=== PATIENT | female | born 1995 | race Caucasian/White ===

== ENCOUNTER 2018-05-22 12:18 | Emergency (ER) | payer BC, OTHER ==
--- NOTE | 2018-05-22 12:21 | EDM.PDOC ---
ED HPI GENERAL MEDICAL PROBLEM - General Chief Complaint: ENT Problem Stated Complaint: SORE THROAT Time Seen by Provider: 05/22/18 12:21 Source of Information: Reports: Patient - History of Present Illness INITIAL COMMENTS - FREE TEXT/NARRATIVE: HISTORY AND PHYSICAL: History of present illness: [Patient has sore throat cough and fever over the last week sore throat is increasing in severity over the last 3 days some difficulty with solid food no difficulty with liquid, no muffled voice drooling or trismus Patient has a history of migraine she also complains of headache she has a sore neck worsened with head turned to the right right SCM does have some significant spasm that is reproducible there are no meningeal signs] She has had chronic headaches for several years no head CT on file Positive for cough and fever and headache no nausea vomiting diarrhea constipation chest pain shortness of breath dizziness or palpitation no bowel or urine symptoms Review of systems: As per history of present illness and below otherwise all systems reviewed and negative. Past medical history: As per history of present illness and as reviewed below otherwise noncontributory. Surgical history: As per history of present illness and as reviewed below otherwise noncontributory. Social history: No reported history of drug or alcohol abuse. Family history: As per history of present illness and as reviewed below otherwise noncontributory. Physical exam: HEENT: Atraumatic, normocephalic, pupils reactive, negative for conjunctival pallor or scleral icterus, mucous membranes moist, throat clear, neck supple, nontender, trachea midline. Moderate erythema of oropharynx no exudates no meningeal signs there is a reproducible pain over right SCM consistent with spasm Lungs: Clear to auscultation, breath sounds equal bilaterally, chest nontender. Heart: S1S2, regular, negative for clicks, rubs, or JVD. Abdomen: Soft, nondistended, nontender. Negative for masses or hepatosplenomegaly. Negative for costovertebral tenderness. Pelvis: Stable nontender. Genitourinary: Deferred. Rectal: Deferred. Extremities: Atraumatic, negative for cords or calf pain. Neurovascular unremarkable. Neuro: Awake, alert, oriented. Cranial nerves II through XII unremarkable. Cerebellum unremarkable. Motor and sensory unremarkable throughout. Exam nonfocal. Diagnostics: [CBC CMP UA hCG chest 2 views Blood cultures 2 ]Rapid strep Head CT no contrast Therapeutics: [1 L normal saline bolus Zofran 8 mg IV Toradol 30 mg IV ]Norflex 60 IV Imitrex 50 mg by mouth Azithromycin Z-Srini dosing Imitrex 100 mg by mouth when necessary #2 tabs one refill ibuprofen when necessary muscle spasm heat ice whichever gains most benefit Impression: Pharyngitis [ fever /cough Right SCM spasm History of migraine Definitive disposition and diagnosis as appropriate pending reevaluation and review of above. Headache Pain Score (Numeric/FACES): 5 Throat Pain Score (Numeric/FACES): 6 - Related Data Allergies Allergy/AdvReac Type Severity Reaction Status Date / Time No Known Allergies Allergy Verified 05/22/18 12:42 Home Meds: Home Meds Levonorgestrel [Mirena] 1 each IY DAILY 09/16/15 [History] Past Medical History Other Musculoskeletal History: multiple broken elbows ED ROS GENERAL - Review of Systems Review Of Systems: See Below ED EXAM, GENERAL - Physical Exam Exam: See Below Course - Vital Signs Last Recorded V/S: Last Vital Signs Temp 100.1 F 05/22/18 12:39 Pulse 106 H 05/22/18 12:39 Resp 16 05/22/18 12:39 BP 124/85 05/22/18 12:39 Pulse Ox 96 05/22/18 12:39 - Orders/Labs/Meds Orders: Active Orders 24 hr Category Date Time Status Chest 2V [CR] Stat Exams 05/22/18 12:39 Taken Head wo Cont [CT] Stat Exams 05/22/18 13:21 Taken CULTURE BLOOD [BC] Stat Lab 05/22/18 12:49 Received CULTURE BLOOD [BC] Stat Lab 05/22/18 12:56 Received CULTURE STREP A CONFIRMATION [RM] Stat Lab 05/22/18 12:19 Results HCG QUALITATIVE,URINE [URCHEM] Stat Lab 05/22/18 13:27 Ordered STREP SCRN A RAPID W CULT CONF [RM] Stat Lab 05/22/18 12:19 Ordered UA W/MICROSCOPIC [URIN] Stat Lab 05/22/18 13:27 Ordered Blood Culture x2 Reflex Set [OM.PC] Stat Oth 05/22/18 12:39 Ordered Labs: Laboratory Tests 05/22/18 05/22/18 05/22/18 Range/Units 12:49 12:49 13:27 WBC 7.45 (4.0-11.0) K/uL RBC 4.77 (4.30-5.90) M/uL Hgb 14.1 (12.0-16.0) g/dL Hct 40.9 (36.0-46.0) % MCV 85.7 (80.0-98.0) fL MCH 29.6 (27.0-32.0) pg MCHC 34.5 (31.0-37.0) g/dL RDW Std Deviation 38.9 (28.0-62.0) fl RDW Coeff of Ryann 12 (11.0-15.0) % Plt Count 175 (150-400) K/uL MPV 10.50 (7.40-12.00) fL Neut % (Auto) 80.9 H (48.0-80.0) % Lymph % (Auto) 9.3 L (16.0-40.0) % Elliott % (Auto) 9.0 (0.0-15.0) % Eos % (Auto) 0.4 (0.0-7.0) % Baso % (Auto) 0.4 (0.0-1.5) % Neut # (Auto) 6.0 H (1.4-5.7) K/uL Lymph # (Auto) 0.7 (0.6-2.4) K/uL Elliott # (Auto) 0.7 (0.0-0.8) K/uL Eos # (Auto) 0.0 (0.0-0.7) K/uL Baso # (Auto) 0.0 (0.0-0.1) K/uL Nucleated RBC % 0.0 /100WBC Nucleated RBCs # 0 K/uL Sodium 134 L (136-145) mmol/L Potassium 3.4 L (3.5-5.1) mmol/L Chloride 101 (98-107) mmol/L Carbon Dioxide 23.2 (21.0-32.0) mmol/L BUN 9 (7.0-18.0) mg/dL Creatinine 0.9 (0.6-1.0) mg/dL Est Cr Clr Drug Dosing 89.72 mL/min Estimated GFR (MDRD) > 60.0 ml/min Glucose 118 H (74-106) mg/dL Calcium 8.9 (8.5-10.1) mg/dL Total Bilirubin 0.4 (0.2-1.0) mg/dL AST 15 (15-37) IU/L ALT 18 (14-63) IU/L Alkaline Phosphatase 80 (46-116) U/L Total Protein 7.8 (6.4-8.2) g/dL Albumin 4.2 (3.4-5.0) g/dL Globulin 3.6 H (2.0-3.5) g/dL Albumin/Globulin Ratio 1.2 L (1.3-2.8) Urine Color YELLOW Urine Appearance CLEAR Urine pH 5.5 (5.0-8.0) Ur Specific Concord >= 1.030 (1.001-1.035) Urine Protein TRACE (NEGATIVE) mg/dL Urine Glucose (UA) NEGATIVE (NEGATIVE) mg/dL Urine Ketones NEGATIVE (NEGATIVE) mg/dL Urine Occult Blood NEGATIVE (NEGATIVE) Urine Nitrite NEGATIVE (NEGATIVE) Urine Bilirubin NEGATIVE (NEGATIVE) Urine Urobilinogen 0.2 (<2.0) EU/dL Ur Leukocyte Esterase NEGATIVE (NEGATIVE) Urine RBC 0-1 (0-2/HPF) Urine WBC 0-1 (0-5/HPF) Ur Epithelial Cells FEW (NONE-FEW) Urine Bacteria FEW (NEGATIVE) Urine Mucus MODERATE (NONE-MOD) Urine HCG, Qual (NEGATIVE) 05/22/18 Range/Units 13:27 WBC (4.0-11.0) K/uL RBC (4.30-5.90) M/uL Hgb (12.0-16.0) g/dL Hct (36.0-46.0) % MCV (80.0-98.0) fL MCH (27.0-32.0) pg MCHC (31.0-37.0) g/dL RDW Std Deviation (28.0-62.0) fl RDW Coeff of Ryann (11.0-15.0) % Plt Count (150-400) K/uL MPV (7.40-12.00) fL Neut % (Auto) (48.0-80.0) % Lymph % (Auto) (16.0-40.0) % Elliott % (Auto) (0.0-15.0) % Eos % (Auto) (0.0-7.0) % Baso % (Auto) (0.0-1.5) % Neut # (Auto) (1.4-5.7) K/uL Lymph # (Auto) (0.6-2.4) K/uL Elliott # (Auto) (0.0-0.8) K/uL Eos # (Auto) (0.0-0.7) K/uL Baso # (Auto) (0.0-0.1) K/uL Nucleated RBC % /100WBC Nucleated RBCs # K/uL Sodium (136-145) mmol/L Potassium (3.5-5.1) mmol/L Chloride (98-107) mmol/L Carbon Dioxide (21.0-32.0) mmol/L BUN (7.0-18.0) mg/dL Creatinine (0.6-1.0) mg/dL Est Cr Clr Drug Dosing mL/min Estimated GFR (MDRD) ml/min Glucose (74-106) mg/dL Calcium (8.5-10.1) mg/dL Total Bilirubin (0.2-1.0) mg/dL AST (15-37) IU/L ALT (14-63) IU/L Alkaline Phosphatase (46-116) U/L Total Protein (6.4-8.2) g/dL Albumin (3.4-5.0) g/dL Globulin (2.0-3.5) g/dL Albumin/Globulin Ratio (1.3-2.8) Urine Color Urine Appearance Urine pH (5.0-8.0) Ur Specific Concord (1.001-1.035) Urine Protein (NEGATIVE) mg/dL Urine Glucose (UA) (NEGATIVE) mg/dL Urine Ketones (NEGATIVE) mg/dL Urine Occult Blood (NEGATIVE) Urine Nitrite (NEGATIVE) Urine Bilirubin (NEGATIVE) Urine Urobilinogen (<2.0) EU/dL Ur Leukocyte Esterase (NEGATIVE) Urine RBC (0-2/HPF) Urine WBC (0-5/HPF) Ur Epithelial Cells (NONE-FEW) Urine Bacteria (NEGATIVE) Urine Mucus (NONE-MOD) Urine HCG, Qual NEGATIVE (NEGATIVE) Meds: Medications Discontinued Medications Generic Name Dose Route Start Last Admin Trade Name Freq PRN Reason Stop Dose Admin Sodium Chloride 1,000 mls @ 999 mls/hr 05/22/18 12:38 05/22/18 12:53 Normal Saline IV 05/22/18 13:38 999 mls/hr STAT ONE Administration Ketorolac Tromethamine 30 mg 05/22/18 12:38 05/22/18 12:58 Toradol IVPUSH 05/22/18 12:39 30 mg ONETIME ONE Administration Ondansetron HCl 8 mg 05/22/18 12:38 05/22/18 12:56 Zofran IVPUSH 05/22/18 12:39 8 mg ONETIME ONE Administration Orphenadrine Citrate 60 mg 05/22/18 14:32 05/22/18 14:40 Norflex IV 05/22/18 14:33 60 mg NOW STA Administration Sumatriptan Succinate 50 mg 05/22/18 14:57 Imitrex PO 05/22/18 14:58 ONETIME ONE Departure - Departure Time of Disposition: 15:02 Disposition: Home, Self-Care 01 Condition: Good Clinical Impression: Pharyngitis, Migraine, Muscle spasm - Discharge Information Referrals: PCP,Unknown [Primary Care Provider] - Forms: ED Department Discharge Additional Instructions: Medication as prescribed Return if symptoms persist or worsen Follow-up with primary care in 2 weeks sooner as needed [facility] - Primary [facility] [address] [place] [address] The following information is given to patients seen in the emergency department who are being discharged to home. This information is to outline your options for follow-up care. We provide all patients seen in our emergency department with a follow-up referral. The need for follow-up, as well as the timing and circumstances, are variable depending upon the specifics of your emergency department visit. If you don't have a primary care physician on staff, we will provide you with a referral. We always advise you to contact your personal physician following an emergency department visit to inform them of the circumstance of the visit and for follow-up with them and/or the need for any referrals to a consulting specialist. The emergency department will also refer you to a specialist when appropriate. This referral assures that you have the opportunity for follow-up care with a specialist. All of these measure are taken in an effort to provide you with optimal care, which includes your follow-up. Under all circumstances we always encourage you to contact your private physician who remains a resource for coordinating your care. When calling for follow-up care, please make the office aware that this follow-up is from your recent emergency room visit. If for any reason you are refused follow-up, please contact the [facility] emergency department at and asked to speak to the emergency department charge nurse. - My Orders Last 24 Hours: My Active Orders 05/22/18 12:39 Chest 2V [CR] Stat Blood Culture x2 Reflex Set [OM.PC] Stat 05/22/18 12:49 CULTURE BLOOD [BC] Stat 05/22/18 12:56 CULTURE BLOOD [BC] Stat 05/22/18 13:21 Head wo Cont [CT] Stat 05/22/18 13:27 HCG QUALITATIVE,URINE [URCHEM] Stat UA W/MICROSCOPIC [URIN] Stat - Assessment/Plan Last 24 Hours: My Active Orders 05/22/18 12:39 Chest 2V [CR] Stat Blood Culture x2 Reflex Set [OM.PC] Stat 05/22/18 12:49 CULTURE BLOOD [BC] Stat 05/22/18 12:56 CULTURE BLOOD [BC] Stat 05/22/18 13:21 Head wo Cont [CT] Stat 05/22/18 13:27 HCG QUALITATIVE,URINE [URCHEM] Stat UA W/MICROSCOPIC [URIN] Stat
[2018-05-22] MEDS ORDERED: Ondansetron 4 MG/2 ML SDV IVPUSH ONE (12:38)
[2018-05-22] MEDS ORDERED: Sodium Chloride 0.9% 1,000 ML IV ONE (12:38)
[2018-05-22] MEDS ORDERED: Ketorolac 30 MG/ML SDV IVPUSH ONE (12:38)
[2018-05-22 13:24] LABS: CHLORIDE,CL 101 mmol/L (98-107); SODIUM,NA 134 mmol/L (136-145)
[2018-05-22] MEDS ORDERED: SUMAtriptan 50 MG Tab PO ONE (14:57)
[2018-05-22 15:11] VITALS: BP 124/80
--- NOTE | 2018-05-23 14:02 | CR ---
EXAM DATE: 05/22/18 PATIENT'S AGE: 22 Patient: ANCA SALAZAR Facility: [place], [place] Site . Site : 1995 Study: XRay Chest [id number]/22/2018 2:04:51 PM Ordering Physician: Curry Guy Final Report: INDICATION: fever/sore throat INDICATION: Fever. Sore throat. TECHNIQUE: Chest 2 views. COMPARISON: None FINDINGS: Cardiovascular and mediastinum: Heart size and vasculature are normal in caliber and appearance. Mediastinum is within normal limits. Lungs and pleural spaces: Lungs are clear. No sign of infiltrate or mass. No sign of pleural effusion. No pneumothorax. Bones and soft tissues: No significant findings. IMPRESSION: Lungs are clear. Dictated by Artur Gutierrez MD @ 05/22/2018 2:21:54 PM Dictated by: Artur Gutierrez MD @ 05/22/2018 14:22:01 (Electronic Signature) Report Signed by Proxy. JOHANNY
--- NOTE | 2018-05-23 14:03 | CT ---
EXAM DATE: 05/22/18 PATIENT'S AGE: 22 Patient: ANCA SALAZAR Facility: [place], [place] Site . Site : 1995 Study: CT Head [id number]/22/2018 2:07:21 PM Ordering Physician: Curry Guy Final Report: HISTORY: Headache. Pain. TECHNIQUE: CT brain without contrast. COMPARISON: None. FINDINGS: No acute intracranial hemorrhage. No extra-axial collection. No mass effect or midline shift. Brain parenchyma is within normal limits for age. Ventricular system is normal in caliber and morphology. Cisterns are patent. Calvarium is intact. Paranasal sinuses and mastoid air cells are clear. IMPRESSION: No acute intracranial abnormality. Please note that all CT scans at this facility use dose modulation, iterative reconstruction, and/or weight-based dosing when appropriate to reduce radiation dose to as low as reasonably achievable. Dictated by Brooks Douglas MD @ May 22 2018 2:23PM (Electronic Signature) Report Signed by Proxy. [facility]
== END 2018-05-22 15:18 | disposition home or self-care (01) ==
LOC: MW.ED 12:18
DX: G43.909 Migraine, unspecified, not intractable, without status migrainosus (principal); J02.9 Acute pharyngitis, unspecified; M62.838 Other muscle spasm
CPT/HCPCS: 36415; 70450; 71046; 80053; 81001; 81025; 85025; 87040; 87081; 87880; 96361; 96374; 96375; 99284; A9270; J1885; J2360; J2405; J7040